=== PATIENT | female | born 1950 | race Caucasian/White ===

== ENCOUNTER 2017-11-17 13:09 | Emergency (ER) | payer MEDICARE, OTHER ==
[2017-11-17 14:35] LABS: WHITE BLOOD COUNT 4.5 10^3/ul (4.8-10.8)
[2017-11-17 14:35] LABS: ABNORMAL IP MESSAGE 1; HEMATOCRIT 45.8 % (37.0-47.0); HEMOGLOBIN 14.6 g/dl (12.0-16.0); MEAN CORPUSCULAR HEMOGLOBIN 31.5 pg (29.0-33.0); MEAN CORPUSCULAR HGB CONC 31.9 g/dl (32.0-37.0); MEAN CORPUSCULAR VOLUME 98.9 fl (82.0-101.0); MEAN PLATELET VOLUME 11.5 fl (7.4-10.4); PLATELET COUNT 72 10^3/UL (140-415); RED BLOOD COUNT 4.63 10^6/ul (4.20-5.40); RED CELL DISTRIBUTION WIDTH 18.1 % (11.5-14.5)
[2017-11-17 14:37] LABS: POSITIVE DIFF @See below
[2017-11-17 14:39] LABS: ADD MAN DIFF? YES
[2017-11-17 14:51] LABS: ADD UMIC YES; UR ASCORBIC ACID NEGATIVE (NEGATIVE); UR BACTERIA FEW /HPF (NONE SEEN); UR BILIRUBIN (Dip) 1+ mg/dL (NEGATIVE); UR BLOOD (Dip) 2+ mg/dL (NEGATIVE); UR CLARITY SLIGHTLY CLOUDY (CLEAR); UR COLOR AMBER (YELLOW); UR GLUCOSE (Dip) NEGATIVE (NEGATIVE); UR KETONES (Dip) TRACE mg/dL (NEGATIVE); UR LEUKOCYTE ESTERASE (Dip) NEGATIVE Leu/ul (NEGATIVE); UR MUCUS FEW /HPF (NONE SEEN); UR NITRITE (Dip) NEGATIVE (NEGATIVE); UR RBC 18 /HPF (0-5); UR SPECIFIC GRAVITY (Dip) 1.025 (1.003-1.030); UR SQUAMOUS EPITHELIAL CELL MODERATE /HPF (FEW); UR TOTAL PROTEIN (Dip) NEGATIVE (NEGATIVE); UR UROBILINOGEN (Dip) 1+ mg/dL (NEGATIVE); UR WBC 1 /HPF (0-5)
[2017-11-17 14:52] LABS: INR 0.98; PROTIME 13.1 Sec (11.9-14.9)
[2017-11-17 14:53] LABS: ALANINE AMINOTRANSFERASE 33 IU/L (13-69); ALBUMIN/GLOBULIN RATIO 1.08; ALKALINE PHOSPHATASE 320 IU/L (42-121); ANION GAP 15 (8-16); ASPARTATE AMINO TRANSFERASE 47 IU/L (15-46); BILIRUBIN,INDIRECT 0.5 mg/dl (0-1.1); BILIRUBIN,TOTAL 0.5 mg/dl (0.2-1.3); BLOOD UREA NITROGEN 21 mg/dl (7-20); CALCIUM 8.4 mg/dl (8.4-10.2); CARBON DIOXIDE 25 mmol/L (21-31); CHLORIDE 104 mmol/L (97-110); CREATININE 1.11 mg/dl (0.44-1.00); GLUCOSE 88 mg/dl (70-220); PARTIAL THROMBOPLASTIN TIME 27.6 Sec (25.0-35.0); POTASSIUM 3.9 mmol/L (3.5-5.1); SODIUM 140 mmol/L (135-144); TOTAL PROTEIN 7.7 g/dl (6.1-8.1)
[2017-11-17 15:04] LABS: TROPONIN-I < 0.010 ng/ml (0.000-0.120)
[2017-11-17 15:59] LABS: BAND NEUTROPHILS % (M) 1 % (0-4); EOSINOPHILS % (M) 6 % (0-7); LYMPHOCYTES #M 0.9 10^3/ul (0.8-2.9); LYMPHOCYTES % (M) 22 % (15-51); MONOCYTE #M 0.5 10^3/ul (0.3-0.9); MONOCYTES % (M) 12 % (0-11); PLATELET ESTIMATE DECREASED; SEG NEUT #M 2.7 10^3/ul (1.6-7.5); SEGMENTED NEUTROPHILS (M) % 59 % (39-77); SMUDGE%M 16 % (0-0)
== END 2017-11-17 16:15 | disposition home or self-care (01) ==
LOC: FTE 16:15
DX: J40 Bronchitis, not specified as acute or chronic (principal); I10 Essential (primary) hypertension; R07.9 Chest pain, unspecified
CPT/HCPCS: 36415; 71045; 80053; 81001; 84484; 85025; 85610; 85730; 93005; 99285-25

== ENCOUNTER 2017-12-24 17:32 | Inpatient (IN) | payer MEDICARE, OTHER ==
[2017-12-24 19:52] LABS: WHITE BLOOD COUNT 5.4 10^3/ul (4.8-10.8)
[2017-12-24 19:52] LABS: ABNORMAL IP MESSAGE 1; HEMOGLOBIN 11.9 g/dl (12.0-16.0); MEAN CORPUSCULAR HEMOGLOBIN 34.4 pg (29.0-33.0); MEAN CORPUSCULAR HGB CONC 33.1 g/dl (32.0-37.0); MEAN PLATELET VOLUME 13.1 fl (7.4-10.4); PLATELET COUNT 93 10^3/UL (140-415); RED BLOOD COUNT 3.46 10^6/ul (4.20-5.40); RED CELL DISTRIBUTION WIDTH 12.8 % (11.5-14.5)
[2017-12-24] MEDS: CEFTRIAXONE 1 GM/50 ML (PMX) 50 ML IVPB (20:02)
[2017-12-24] MEDS: PANTOPRAZOLE IV 80 MG in SOD CHLORIDE 0.9% 100 ML IV (20:03)
[2017-12-24] MEDS: PANTOPRAZOLE IV 80 MG in SOD CHLORIDE 0.9% 100 ML IVPB (20:03)
[2017-12-24] MEDS: OCTREOTIDE 50 MCG in SOD CHLORIDE 0.9% 25 ML IVPB (20:03)
[2017-12-24 20:15] LABS: POSITIVE DIFF @See below
[2017-12-24 20:16] LABS: ADD MAN DIFF? YES
[2017-12-24 20:17] LABS: INR 0.88; PT RATIO 0.9
[2017-12-24 20:20] LABS: ALANINE AMINOTRANSFERASE 39 IU/L (13-69); ALBUMIN/GLOBULIN RATIO 1.02; ALKALINE PHOSPHATASE 292 IU/L (42-121); ANION GAP 17 (8-16); ASPARTATE AMINO TRANSFERASE 67 IU/L (15-46); BILIRUBIN,INDIRECT 0.5 mg/dl (0-1.1); BILIRUBIN,TOTAL 0.5 mg/dl (0.2-1.3); BLOOD UREA NITROGEN 68 mg/dl (7-20); CALCIUM 8.7 mg/dl (8.4-10.2); CARBON DIOXIDE 23 mmol/L (21-31); CHLORIDE 104 mmol/L (97-110); CREATININE 1.51 mg/dl (0.44-1.00); GLUCOSE 102 mg/dl (70-220); POTASSIUM 4.1 mmol/L (3.5-5.1); SODIUM 140 mmol/L (135-144); TOTAL PROTEIN 7.9 g/dl (6.1-8.1)
[2017-12-24 20:31] LABS: TROPONIN-I < 0.010 ng/ml (0.000-0.120)
[2017-12-24] MEDS: OCTREOTIDE 500 MCG in SOD CHLORIDE 0.9% 49 ML IV (20:42)
[2017-12-24 20:56] LABS: BAND NEUTROPHILS #M 0.1 10^3/ul (0.0-0.6); BAND NEUTROPHILS % (M) 2 % (0-4); EOSINOPHILS % (M) 4 % (0-7); GIANT THROMBO% (M) 6 % (0-0); LYMPHOCYTES % (M) 38 % (15-51); MONOCYTE #M 0.2 10^3/ul (0.3-0.9); MONOCYTES % (M) 4 % (0-11); PLATELET ESTIMATE DECREASED; POLYCHROMASIA 1+ (0-0); REACTIVE LYMPHOCYTES #M 0.1 10^3/ul (0.0-0.0); REACTIVE LYMPHOCYTES% (M) 2 % (0-0); SEG NEUT #M 2.7 10^3/ul (1.6-7.5); SEGMENTED NEUTROPHILS (M) % 50 % (39-77); SMUDGE%M 1 % (0-0)
[2017-12-24 21:23] LABS: PARTIAL THROMBOPLASTIN TIME 26.8 Sec (25.0-35.0)
[2017-12-24] MEDS ORDERED: ACETAMINOPHEN 325 MG TAB PO (21:30)
[2017-12-24] MEDS ORDERED: ONDANSETRON 4 MG INJ IV (21:30)
[2017-12-25] MEDS ORDERED: ACETAMINOPHEN 325 MG TAB PO (03:30)
[2017-12-25] MEDS: DEXTROSE 5%-0.45% NACL 1,000 ML IV ×2 (04:24→23:33)
[2017-12-25] MEDS: OCTREOTIDE 1 MG in DEXTROSE 5% 95 ML IV (05:08)
[2017-12-25] MEDS: PANTOPRAZOLE IV 80 MG in SOD CHLORIDE 0.9% 100 ML IV ×2 (05:08→15:30)
[2017-12-25 05:51] LABS: ADD MAN DIFF? NO
[2017-12-25 06:00] LABS: ABNORMAL IP MESSAGE 1; MONOCYTE # 0.3 10^3/ul (0.3-0.9); MONOCYTES % 9.5 % (0.0-11.0); RED CELL DISTRIBUTION WIDTH 12.8 % (11.5-14.5)
[2017-12-25 06:11] LABS: WHITE BLOOD COUNT 3.5 10^3/ul (4.8-10.8)
[2017-12-25 06:11] LABS: BASOPHILS % 0.9 % (0.0-2.0); EOSINOPHILS # 0.1 10^3/ul (0.0-0.5); EOSINOPHILS % 1.4 % (0.0-7.0); HEMATOCRIT 32.1 % (37.0-47.0); HEMOGLOBIN 10.9 g/dl (12.0-16.0); LYMPHOCYTES # 1.5 10^3/ul (0.8-2.9); LYMPHOCYTES % 43.8 % (15.0-51.0); MEAN CORPUSCULAR HEMOGLOBIN 34.8 pg (29.0-33.0); MEAN CORPUSCULAR VOLUME 102.6 fl (82.0-101.0); MEAN PLATELET VOLUME 11.8 fl (7.4-10.4); NEUTROPHIL # 1.5 10^3/ul (1.6-7.5); NEUTROPHILS % 43.8 % (39.0-77.0); PLATELET COUNT 63 10^3/UL (140-415); RED BLOOD COUNT 3.13 10^6/ul (4.20-5.40)
[2017-12-25 06:14] LABS: POSITIVE DIFF @See below
[2017-12-25 06:38] LABS: ALANINE AMINOTRANSFERASE 38 IU/L (13-69); ALBUMIN 3.3 g/dl (3.3-4.9); ALBUMIN/GLOBULIN RATIO 1.03; ALKALINE PHOSPHATASE 256 IU/L (42-121); ANION GAP 12 (8-16); ASPARTATE AMINO TRANSFERASE 53 IU/L (15-46); BILIRUBIN,INDIRECT 0.6 mg/dl (0-1.1); BILIRUBIN,TOTAL 0.6 mg/dl (0.2-1.3); BLOOD UREA NITROGEN 58 mg/dl (7-20); CARBON DIOXIDE 24 mmol/L (21-31); CHLORIDE 107 mmol/L (97-110); CREATININE 1.31 mg/dl (0.44-1.00); GLUCOSE 135 mg/dl (70-220); POTASSIUM 3.4 mmol/L (3.5-5.1); SODIUM 140 mmol/L (135-144); TOTAL PROTEIN 6.5 g/dl (6.1-8.1)
[2017-12-25] MEDS: PROPOFOL 20 ML (13:19)
[2017-12-25] MEDS: LIDOCAINE 2% (SDV) 5 ML INJ (13:19)
[2017-12-25] MEDS: EPHEDrine 50 MG INJ (13:31)
[2017-12-25] MEDS ORDERED: ONDANSETRON 4 MG INJ IV (14:30)
[2017-12-25 15:06] LABS: ADD MAN DIFF? NO
[2017-12-25 15:07] LABS: ABNORMAL IP MESSAGE 1; BASOPHILS % 0.8 % (0.0-2.0); EOSINOPHILS % 1.2 % (0.0-7.0); HEMATOCRIT 31.1 % (37.0-47.0); HEMOGLOBIN 10.6 g/dl (12.0-16.0); LYMPHOCYTES # 1.1 10^3/ul (0.8-2.9); LYMPHOCYTES % 45.1 % (15.0-51.0); MEAN CORPUSCULAR HEMOGLOBIN 35.2 pg (29.0-33.0); MEAN CORPUSCULAR HGB CONC 34.1 g/dl (32.0-37.0); MEAN CORPUSCULAR VOLUME 103.3 fl (82.0-101.0); MEAN PLATELET VOLUME 12.6 fl (7.4-10.4); MONOCYTE # 0.3 10^3/ul (0.3-0.9); MONOCYTES % 11.5 % (0.0-11.0); NEUTROPHILS % 40.6 % (39.0-77.0); RED BLOOD COUNT 3.01 10^6/ul (4.20-5.40); RED CELL DISTRIBUTION WIDTH 12.6 % (11.5-14.5)
[2017-12-25 15:07] LABS: WHITE BLOOD COUNT 2.5 10^3/ul (4.8-10.8)
[2017-12-25 15:16] LABS: POSITIVE DIFF @See below
[2017-12-25 15:17] LABS: PLATELET COUNT 65 10^3/UL (140-415)
[2017-12-25] MEDS: POTASSIUM CHLORIDE (SR) 20 MEQ TAB PO (15:30)
[2017-12-25] MEDS: PANTOPRAZOLE 40 MG INJ IV (17:05)
[2017-12-25 21:31] LABS: ADD MAN DIFF? NO
[2017-12-25 21:33] LABS: ABNORMAL IP MESSAGE 1; EOSINOPHILS # 0.1 10^3/ul (0.0-0.5); EOSINOPHILS % 1.7 % (0.0-7.0); HEMATOCRIT 32.4 % (37.0-47.0); HEMOGLOBIN 10.7 g/dl (12.0-16.0); LYMPHOCYTES # 1.1 10^3/ul (0.8-2.9); LYMPHOCYTES % 36.6 % (15.0-51.0); MEAN CORPUSCULAR HEMOGLOBIN 34.5 pg (29.0-33.0); MEAN CORPUSCULAR VOLUME 104.5 fl (82.0-101.0); MEAN PLATELET VOLUME 12.6 fl (7.4-10.4); MONOCYTE # 0.3 10^3/ul (0.3-0.9); MONOCYTES % 10.3 % (0.0-11.0); NEUTROPHIL # 1.5 10^3/ul (1.6-7.5); NEUTROPHILS % 50.1 % (39.0-77.0); RED CELL DISTRIBUTION WIDTH 12.8 % (11.5-14.5)
[2017-12-25 21:33] LABS: WHITE BLOOD COUNT 2.9 10^3/ul (4.8-10.8)
[2017-12-25 22:02] LABS: POSITIVE DIFF @See below
[2017-12-25 22:03] LABS: PLATELET COUNT 60 10^3/UL (140-415)
[2017-12-26] MEDS: PANTOPRAZOLE 40 MG INJ IV ×2 (05:53→17:25)
[2017-12-26] MEDS: DEXTROSE 5%-0.45% NACL 1,000 ML IV ×2 (05:54→20:43)
[2017-12-26 06:52] LABS: ADD MAN DIFF? NO
[2017-12-26 06:55] LABS: ABNORMAL IP MESSAGE 1; BASOPHILS % 1.1 % (0.0-2.0); EOSINOPHILS % 1.5 % (0.0-7.0); HEMATOCRIT 33.1 % (37.0-47.0); HEMOGLOBIN 10.9 g/dl (12.0-16.0); IMMATURE GRANS #M 0.01 10^3/ul; IMMATURE GRANS % (M) 0.4 %; LYMPHOCYTES % 37.7 % (15.0-51.0); MEAN CORPUSCULAR HEMOGLOBIN 34.2 pg (29.0-33.0); MEAN CORPUSCULAR HGB CONC 32.9 g/dl (32.0-37.0); MEAN CORPUSCULAR VOLUME 103.8 fl (82.0-101.0); MEAN PLATELET VOLUME 13.3 fl (7.4-10.4); MONOCYTE # 0.3 10^3/ul (0.3-0.9); MONOCYTES % 9.7 % (0.0-11.0); NEUTROPHIL # 1.3 10^3/ul (1.6-7.5); NEUTROPHILS % 49.6 % (39.0-77.0); PLATELET COUNT 67 10^3/UL (140-415); RED BLOOD COUNT 3.19 10^6/ul (4.20-5.40); RED CELL DISTRIBUTION WIDTH 12.8 % (11.5-14.5)
[2017-12-26 06:55] LABS: WHITE BLOOD COUNT 2.7 10^3/ul (4.8-10.8)
[2017-12-26 06:58] LABS: POSITIVE DIFF @See below
[2017-12-26 07:15] LABS: PHOSPHORUS 2.8 mg/dl (2.5-4.9)
[2017-12-26 07:15] LABS: MAGNESIUM 2.1 mg/dl (1.7-2.5)
[2017-12-26 07:17] LABS: ANION GAP 10 (8-16); BLOOD UREA NITROGEN 32 mg/dl (7-20); CALCIUM 7.8 mg/dl (8.4-10.2); CARBON DIOXIDE 23 mmol/L (21-31); CHLORIDE 111 mmol/L (97-110); CREATININE 1.05 mg/dl (0.44-1.00); GLUCOSE 115 mg/dl (70-220); SODIUM 140 mmol/L (135-144)
[2017-12-26 10:11] LABS: ADD UMIC NO; UR ASCORBIC ACID NEGATIVE (NEGATIVE); UR BILIRUBIN (Dip) NEGATIVE (NEGATIVE); UR BLOOD (Dip) NEGATIVE (NEGATIVE); UR CLARITY CLEAR (CLEAR); UR COLOR YELLOW (YELLOW); UR GLUCOSE (Dip) NEGATIVE (NEGATIVE); UR KETONES (Dip) NEGATIVE (NEGATIVE); UR LEUKOCYTE ESTERASE (Dip) NEGATIVE Leu/ul (NEGATIVE); UR NITRITE (Dip) NEGATIVE (NEGATIVE); UR SPECIFIC GRAVITY (Dip) 1.015 (1.003-1.030); UR TOTAL PROTEIN (Dip) NEGATIVE (NEGATIVE); UR UROBILINOGEN (Dip) NEGATIVE (NEGATIVE)
[2017-12-26 10:52] LABS: SODIUM,URINE RANDOM 54 mmol/L (30-90)
[2017-12-26] MEDS: PROPRANOLOL 10 MG TAB PO (20:43)
[2017-12-27 06:22] LABS: ADD MAN DIFF? NO
[2017-12-27] MEDS: PANTOPRAZOLE 40 MG INJ IV (06:24)
[2017-12-27 06:33] LABS: WHITE BLOOD COUNT 2.9 10^3/ul (4.8-10.8)
[2017-12-27 06:33] LABS: ABNORMAL IP MESSAGE 1; BASOPHILS % 0.7 % (0.0-2.0); EOSINOPHILS % 1.4 % (0.0-7.0); HEMATOCRIT 32.2 % (37.0-47.0); HEMOGLOBIN 10.6 g/dl (12.0-16.0); IMMATURE GRANS #M 0 10^3/ul; IMMATURE GRANS % (M) 0 %; LYMPHOCYTES # 1.2 10^3/ul (0.8-2.9); LYMPHOCYTES % 41.3 % (15.0-51.0); MEAN CORPUSCULAR HEMOGLOBIN 34.8 pg (29.0-33.0); MEAN CORPUSCULAR HGB CONC 32.9 g/dl (32.0-37.0); MEAN CORPUSCULAR VOLUME 105.6 fl (82.0-101.0); MEAN PLATELET VOLUME 13.3 fl (7.4-10.4); MONOCYTE # 0.4 10^3/ul (0.3-0.9); MONOCYTES % 12.2 % (0.0-11.0); NEUTROPHIL # 1.3 10^3/ul (1.6-7.5); NEUTROPHILS % 44.4 % (39.0-77.0); PLATELET COUNT 63 10^3/UL (140-415); RED BLOOD COUNT 3.05 10^6/ul (4.20-5.40); RED CELL DISTRIBUTION WIDTH 12.8 % (11.5-14.5)
[2017-12-27 06:42] LABS: POSITIVE DIFF @See below
[2017-12-27] MEDS: PROPRANOLOL 10 MG TAB PO ×2 (09:23→12:50)
[2017-12-27] MEDS: DEXTROSE 5%-0.45% NACL 1,000 ML IV (15:30)
== END 2017-12-27 18:05 | disposition home or self-care (01) | DRG 378 ==
LOC: 2NE 12-26 05:30 → E/R 17:32 → 6WM 21:20
PROC: 0DJ08ZZ Inspection of Upper Intestinal Tract, Via Natural or Artificial Opening Endoscopic (ICD-10-PCS; principal; 2017-12-25 13:00)
DX: K92.1 Melena (principal); N17.9 Acute kidney failure, unspecified; D61.818 Other pancytopenia; N18.9 Chronic kidney disease, unspecified; I12.9 Hypertensive chronic kidney disease with stage 1 through stage 4 chronic kidney disease, or unspecified chronic kidney disease; K25.9 Gastric ulcer, unspecified as acute or chronic, without hemorrhage or perforation; K74.69 Other cirrhosis of liver; I85.10 Secondary esophageal varices without bleeding; I95.9 Hypotension, unspecified
CPT/HCPCS: 36415; 80048; 80053; 81003; 83735; 84100; 84300; 84484; 85025; 85610; 85730; 86850; 86900; 86901; 87081; 89190; 93005; 96374; 96375; 96376; 99217; 99285-25

== ENCOUNTER 2018-07-28 20:05 | Emergency (ER) | payer MEDICARE, OTHER ==
[2018-07-28] MEDS: LIDOCAINE/MYLANTA 40 ML BTL PO ×2 (22:16→23:44)
[2018-07-28] MEDS: morphine 4 MG/ML VIAL IV ×2 (22:16→23:44)
[2018-07-28 22:23] LABS: ADD MAN DIFF? NO
[2018-07-28 22:24] LABS: ABNORMAL IP MESSAGE 1; BASOPHIL # 0.1 10^3/ul (0.0-0.1); BASOPHILS % 1.4 % (0.0-2.0); EOSINOPHILS # 0.2 10^3/ul (0.0-0.5); EOSINOPHILS % 3.7 % (0.0-7.0); HEMATOCRIT 29.1 % (37.0-47.0); HEMOGLOBIN 8.6 g/dl (12.0-16.0); LYMPHOCYTES # 1.6 10^3/ul (0.8-2.9); LYMPHOCYTES % 32.8 % (15.0-51.0); MEAN CORPUSCULAR HEMOGLOBIN 27.7 pg (29.0-33.0); MEAN CORPUSCULAR HGB CONC 29.6 g/dl (32.0-37.0); MEAN CORPUSCULAR VOLUME 93.9 fl (82.0-101.0); MEAN PLATELET VOLUME 14.4 fl (7.4-10.4); MONOCYTE # 0.6 10^3/ul (0.3-0.9); MONOCYTES % 11.8 % (0.0-11.0); NEUTROPHIL # 2.5 10^3/ul (1.6-7.5); NEUTROPHILS % 49.9 % (39.0-77.0); PLATELET COUNT 71 10^3/UL (140-415); RED CELL DISTRIBUTION WIDTH 15.1 % (11.5-14.5)
[2018-07-28 22:24] LABS: WHITE BLOOD COUNT 4.9 10^3/ul (4.8-10.8)
[2018-07-28 22:27] LABS: POSITIVE DIFF @See below
[2018-07-28 22:28] LABS: PARTIAL THROMBOPLASTIN TIME 29.3 Sec (23.0-35.0); PROTIME 13.3 Sec (11.9-14.9)
[2018-07-28 22:30] LABS: ALANINE AMINOTRANSFERASE 22 IU/L (13-69); ALBUMIN 3.2 g/dl (3.3-4.9); ALBUMIN/GLOBULIN RATIO 1.03; ALKALINE PHOSPHATASE 273 IU/L (42-121); ANION GAP 9 (5-13); ASPARTATE AMINO TRANSFERASE 46 IU/L (15-46); BILIRUBIN,INDIRECT 0.4 mg/dl (0-1.1); BILIRUBIN,TOTAL 0.4 mg/dl (0.2-1.3); BLOOD UREA NITROGEN 50 mg/dl (7-20); CALCIUM 8.2 mg/dl (8.4-10.2); CARBON DIOXIDE 26 mmol/L (21-31); CHLORIDE 104 mmol/L (97-110); CREATININE 1.12 mg/dl (0.44-1.00); Estimated GFR 49 mL/min (>60); GLUCOSE 177 mg/dl (70-220); LIPASE 288 U/L (23-300); POTASSIUM 3.9 mmol/L (3.5-5.1); SODIUM 139 mmol/L (135-144); TOTAL PROTEIN 6.3 g/dl (6.1-8.1)
[2018-07-28 22:41] LABS: TROPONIN-I < 0.012 ng/ml (0.000-0.120)
[2018-07-28 23:59] LABS: URINE PH (Dip) POC 5.5 (5.0-8.5)
[2018-07-28 23:59] LABS: URINE BLOOD (Dip) POC Negative (NEGATIVE); URINE GLUCOSE (Dip) POC Negative (NEGATIVE); URINE KETONES (Dip) POC Trace (NEGATIVE); URINE LEUKOCYTE EST (Dip) POC Negative (NEGATIVE); URINE NITRITE (Dip) POC Negative (NEGATIVE); URINE TOTAL PROTEIN POC Negative (NEGATIVE)
== END 2018-07-29 00:50 | disposition home or self-care (01) ==
LOC: E/R 07-29 00:50
DX: R10.13 Epigastric pain (principal); D64.9 Anemia, unspecified
CPT/HCPCS: 36415; 71045; 80053; 81003; 83690; 84484; 85025; 85610; 85730; 93005; 99285-25